=== PATIENT | male | born 1950 | race Caucasian/White ===

== ENCOUNTER 2017-12-27 12:21 | Emergency (ER) | payer MEDICARE ==
[2017-12-27 12:34] VITALS: RESP 18
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
--- NOTE | 2017-12-27 13:56 | US ---
EXAMINATION TYPE: US scrotum with doppler. Grayscale and color Doppler Duplex imaging performed of leeory vizcarra scrotum. DATE OF EXAM: 12/27/2017 COMPARISON: NONE CLINICAL HISTORY: Swelling left testicle. EXAM MEASUREMENTS: TESTICLES: Right Testicle: 4.0 x 3.2 x 3.1 cm Left Testicle: 4.4 x 3.0 x 3.1 cm EPIDIDYMIS HEAD: Right Epididymis: 1.2 cm, Cystic area visualize measuring 0.2 cm Left Epididymis: 1.2 cm Doppler performed to assess for testicular vascularity; good bilateral color flow and waveforms are s een. There is no evidence of testicular torsion. Presence of hydroceles: Yes, bilaterally Presence of varicoceles: No Bilateral hydroceles visualized. Septations visualized within the left. IMPRESSION: 1. Hydroceles, this is complex on the left with internal septations..
[2017-12-27 14:35] LABS: Appearance,Urine Cloudy (Clear); Bacteria,Urine Rare /hpf; Bilirubin,Urine Negative (Negative); Blood,Urine Large (Negative); Color,Urine Dark Brown; Glucose,Urine (UA) Negative (Negative); Ketones,Urine Negative (Negative); Leukocyte Esterase,Urine Moderate (Negative); Mucus,Urine Rare /hpf; PH, Urine 6.5 (5.0-8.0); Protein,Urine 1+ (Negative); RBC,Urine >182 /hpf (0-5); Specific Gravity,Urine 1.018 (1.001-1.035); Squamous Epithelial Cell,Urine 1 /hpf (0-4); WBC,Urine 84 /hpf (0-5)
[2017-12-27 15:30] VITALS: BP 150/96; PULSE 74; TEMP 97
== END 2017-12-27 15:25 | disposition home or self-care (01) ==
LOC: EC 12:21
DX: N39.0 Urinary tract infection, site not specified (principal); N43.3 Hydrocele, unspecified; Z87.891 Personal history of nicotine dependence; Z79.82 Long term (current) use of aspirin; Z79.899 Other long term (current) drug therapy; Z88.1 Allergy status to other antibiotic agents
CPT/HCPCS: 76870; 81001; 87077; 87086; 87186; 93975; 99284

== ENCOUNTER → 2018-01-16 | Outpatient (CLI) | payer MEDICARE ==
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
== END ==
LOC: RADXRMAIN 14:44
DX: S49.91XA Unspecified injury of right shoulder and upper arm, initial encounter (principal)

== ENCOUNTER 2018-02-02 11:34 | Inpatient (IN) | payer MEDICARE ==
[2018-02-02] MEDS ORDERED: SODIUM CHLORIDE 0.9% 1,000 ML IV ONE (11:55)
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
[2018-02-02 12:28] LABS: Anisocytosis Slight; Basophils % (A) 0 %; Eosinophils # (A) 0.1 k/uL (0-0.7); Eosinophils % (A) 3 %; HCT 42.8 % (39.0-53.0); HGB 13.7 gm/dL (13.0-17.5); Hypochromasia Slight; Lymphocytes # (A) 0.5 k/uL (1.0-4.8); Lymphocytes % (A) 31 %; MCH 26.4 pg (25.0-35.0); MCHC 31.9 g/dL (31.0-37.0); MCV 82.6 fL (80.0-100.0); Mean Platelet Volume 9.8; Monocytes # (A) 0.1 k/uL (0-1.0); Monocytes % (A) 6 %; Neutrophils % (A) 58 %; RBC 5.18 m/uL (4.30-5.90); RDW 16.5 % (11.5-15.5)
[2018-02-02 12:32] LABS: Appearance,Urine Clear (Clear); Bilirubin,Urine Negative (Negative); Blood,Urine Trace (Negative); Color,Urine Light Yellow; Glucose,Urine (UA) Negative (Negative); Hyaline Casts,Urine 4 /lpf (0-2); Ketones,Urine Negative (Negative); Leukocyte Esterase,Urine Negative (Negative); Mucus,Urine Rare /hpf; Nitrite,Urine Negative (Negative); Protein,Urine Negative (Negative); RBC,Urine 2 /hpf (0-5); Specific Gravity,Urine 1.008 (1.001-1.035); Squamous Epithelial Cell,Urine <1 /hpf (0-4); Urobilinogen,Urine <2.0 mg/dL (<2.0); WBC,Urine <1 /hpf (0-5)
--- NOTE | 2018-02-02 12:37 | CT ---
EXAMINATION TYPE: CT brain wo con DATE OF EXAM: 02/02/2018 COMPARISON: NONE HISTORY: UTI, Altered mental status CT DLP: 1023.20 mGycm Automated exposure control for dose reduction was used. FINDINGS: Central structures are midline. There is no evidence of hydrocephalus. No acute focal lesion, mass ef fect or midline shift is seen. I do not see evidence of intracranial blood. The orbits appear normal. Visualized portions of the paranasal sinuses and mastoids are clear. The bony calvarium is intact. IMPRESSION: NO ACUTE INTRACRANIAL ABNORMALITY.
[2018-02-02 12:39] LABS: ALT 68 U/L (21-72); AST 46 U/L (17-59); Albumin 3.8 g/dL (3.5-5.0); Alkaline Phosphatase 70 U/L (38-126); Anion Gap 12 mmol/L; Blood Urea Nitrogen 13 mg/dL (9-20); Calcium 9.3 mg/dL (8.4-10.2); Carbon Dioxide 34 mmol/L (22-30); Chloride 101 mmol/L (98-107); Glucose 95 mg/dL (74-99); Potassium 3.6 mmol/L (3.5-5.1); Sodium 147 mmol/L (137-145); Total Bilirubin 1.3 mg/dL (0.2-1.3); Total Protein 6.9 g/dL (6.3-8.2)
[2018-02-02 12:45] LABS: WBC 1.7 k/uL (3.8-10.6)
[2018-02-02 12:47] LABS: Creatine Kinase 20 U/L (55-170)
[2018-02-02 12:57] LABS: INR 1.2 (<1.2); Partial Thromboplastin Time 30.5 sec (22.0-30.0); Prothrombin Time 11.6 sec (9.0-12.0)
--- NOTE | 2018-02-02 12:59 | XR ---
EXAMINATION TYPE: XR chest 2V DATE OF EXAM: 02/02/2018 HISTORY: altered mental status. REFERENCE: Previous study dated 10/03/2017. FINDINGS: The heart is enlarged. There is unfolding of the thoracic aorta. The study is rotated. This gives increased opacity in the left hemithorax. No definite infiltrate is seen. The left CP angle is excluded from this study. Incidental note is made of a previous posterior fusion of the lower cervical spine. IMPRESSION: CARDIOMEGALY.
[2018-02-02 13:00] LABS: Creatine Kinase MB 2.3 ng/mL (0.0-2.4); Troponin I <0.012 ng/mL (0.000-0.034)
[2018-02-02 13:00] LABS: Amphetamine Screen,Urine Not Detected (NotDetected); Barbiturate Screen,Urine Not Detected (NotDetected); Benzodiazepines Screen,Urine Not Detected (NotDetected); Cocaine Screen,Urine Not Detected (NotDetected); Methadone Screen, Urine Not Detected (NotDetected); Opiate Screen,Urine Not Detected (NotDetected); Oxycodone Screen, Urine Not Detected (NotDetected); Phencyclidine Screen,Urine Not Detected (NotDetected); Tricyclic Antidepressant,Urine Detected (NotDetected); Urn Cannabinoid Scrn Not Detected (NotDetected)
[2018-02-02 13:05] LABS: Large Platelets Present; Platelet Count 36 k/uL (150-450)
[2018-02-02] MEDS ORDERED: ACETAMINOPHEN TAB 325 MG TAB PO PRN (13:36)
[2018-02-02] MEDS ORDERED: NALOXONE 0.4 MG/ML 1 ML VIAL IV PRN (13:36)
[2018-02-02] MEDS ORDERED: PIPERACILLIN-TAZOBACTAM 3.375 GM in DEXTROSE/WATER 1 50ML.BAG IVPB STA (13:39)
[2018-02-02] MEDS ORDERED: VANCOMYCIN IV PER PHARMACY 1 EACH MISC MISCELLANE PRN (13:39)
[2018-02-02] MEDS: SODIUM CHLORIDE 0.9% 1,000 ML IV SCH (14:45)
[2018-02-02] MEDS ORDERED: VANCOMYCIN 1,750 MG in SODIUM CHLORIDE 0.9% 250 ML IVPB ONE (18:00)
[2018-02-02] MEDS: AMITRIPTYLINE HCL 25 MG TAB PO SCH (21:57)
[2018-02-02] MEDS: BACLOFEN 10 MG TAB PO SCH (21:57)
[2018-02-02] MEDS: PIPERACILLIN-TAZOBACTAM 3.375 GM in DEXTROSE/WATER 1 50ML.BAG IVPB SCH (23:55)
[2018-02-03 06:04] LABS: Glucose,Whole Blood 87 mg/dL (75-99)
[2018-02-03] MEDS: VANCOMYCIN 1,750 MG in SODIUM CHLORIDE 0.9% 250 ML IVPB SCH ×2 (06:45→21:31)
[2018-02-03] MEDS: SODIUM CHLORIDE 0.9% 1,000 ML IV SCH (06:45)
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
--- NOTE | 2018-02-03 09:32 | US ---
EXAMINATION TYPE: US kidneys/renal and bladder DATE OF EXAM: 02/03/2018 COMPARISON: CT and US CLINICAL HISTORY: uti, sepsis stones. UTI, Sepsis EXAM MEASUREMENTS: Right Kidney: 11.5 x 5.5 x 6.7 cm Left Kidney: 12.9 x 4.8 x 5.5 cm Difficult exam, portable scan, pt a quadriplegic Right Kidney: Echogenic mass superior to right kidney, known adrenal mass= 7.4 x 6.1 x 8.2 cm, in add ition a hypoechoic lesion near upper pole= 2.7 x 1.8 x 2.5 cm, unable to determine if connected to ki dney Left Kidney: Cortical thinning, otherwise appeared Bladder: Pt has cath in place Incidental enlarged spleen and gallstones IMPRESSION: 1. No now mass right adrenal gland. Additional hypoechoic mass adjacent right kidney. CT correlation recommended.
[2018-02-03 09:33] LABS: Anisocytosis Slight; Basophils % (A) 0 %; Eosinophils # (A) 0.1 k/uL (0-0.7); Eosinophils % (A) 1 %; HCT 40.8 % (39.0-53.0); HGB 12.7 gm/dL (13.0-17.5); Hypochromasia Moderate; Lymphocytes # (A) 0.8 k/uL (1.0-4.8); Lymphocytes % (A) 21 %; MCH 26.2 pg (25.0-35.0); MCHC 31.1 g/dL (31.0-37.0); MCV 84.3 fL (80.0-100.0); Mean Platelet Volume 9.6; Monocytes # (A) 0.2 k/uL (0-1.0); Monocytes % (A) 6 %; Neutrophils # (A) 2.6 k/uL (1.3-7.7); Neutrophils % (A) 70 %; RBC 4.84 m/uL (4.30-5.90); RDW 16.5 % (11.5-15.5); WBC 3.7 k/uL (3.8-10.6)
[2018-02-03 09:41] LABS: Platelet Count 52 k/uL (150-450)
[2018-02-03 09:49] LABS: ALT 57 U/L (21-72); AST 48 U/L (17-59); Albumin 3.1 g/dL (3.5-5.0); Alkaline Phosphatase 60 U/L (38-126); Anion Gap 12 mmol/L; Blood Urea Nitrogen 16 mg/dL (9-20); Calcium 8.9 mg/dL (8.4-10.2); Carbon Dioxide 26 mmol/L (22-30); Chloride 108 mmol/L (98-107); Glucose 79 mg/dL (74-99); LDH 382 U/L (313-618); Potassium 3.6 mmol/L (3.5-5.1); Sodium 146 mmol/L (137-145); Total Bilirubin 1.6 mg/dL (0.2-1.3)
[2018-02-03] MEDS: LISINOPRIL 5 MG TAB PO SCH ×2 (09:51→10:35)
[2018-02-03] MEDS: ASPIRIN 81 MG PO SCH ×2 (09:51→10:33)
[2018-02-03] MEDS: BACLOFEN 10 MG TAB PO SCH ×2 (09:51→10:27)
[2018-02-03] MEDS: amLODIPine 5 MG TAB PO SCH ×2 (09:51→10:33)
[2018-02-03] MEDS: FUROSEMIDE 20 MG TAB PO SCH ×2 (09:51→10:35)
[2018-02-03] MEDS: POTASSIUM CHLORIDE ER 10 MEQ TAB.ER.PRT PO SCH ×2 (09:52→10:35)
[2018-02-03] MEDS: OXYBUTYNIN 10 MG TAB.ER.24 PO SCH ×2 (09:52→10:35)
[2018-02-03] MEDS: MULTIVITAMINS, THERA 1 EACH TAB PO SCH ×2 (09:52→10:36)
[2018-02-03] MEDS: OXYBUTYNIN 15 MG TAB.ER.24 PO SCH ×2 (09:52→10:35)
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
[2018-02-03] MEDS: CEFEPIME 2 GM in SODIUM CHLORIDE 0.9% 50 ML IVPB SCH ×2 (10:35→17:03)
--- NOTE | 2018-02-03 10:57 | XR ---
EXAMINATION TYPE: XR chest 1V DATE OF EXAM: 02/03/2018 HISTORY: Shortness of breath. COMPARISON: 02/02/2018 TECHNIQUE: Single view of the chest is submitted. FINDINGS: Demonstrated are scattered senescent parenchymal change. There is increased left perihilar density may reflect developing infiltrate. The heart is stable. Unfolding of the thoracic aorta with ectasia seen. Hilar and mediastinal structures are within normal limits. Degenerative changes are seen of the dorsal spine. IMPRESSION: 1. There is increased left perihilar density may reflect developing infiltrate.
[2018-02-03] MEDS ORDERED: SODIUM CHLORIDE 0.9% 1,000 ML IV ONE ×2 (11:42→11:43)
[2018-02-03] MEDS ORDERED: RX INFO: IV CONTRAST WAS GIVEN 1 EACH MISC MISCELLANE PRN (11:53)
--- NOTE | 2018-02-03 12:21 | XR ---
EXAMINATION TYPE: XR abdomen 1V DATE OF EXAM: 02/03/2018 11:59 AM CLINICAL HISTORY: Pain, ileitis TECHNIQUE: Single supine KUB image of the abdomen is obtained. COMPARISON: 06/21/2016 FINDINGS: Scattered gas is seen in non-distended small bowel loops. Gas and fecal material is seen in non-distended colon. There is no visceromegaly, pneumoperitoneum, or abnormal calcification apprecia jesus. The lung bases are clear and the osseous structures are intact. Stents and IVC filter noted to b e in place. Severe degenerative change right hip. Degenerative change lumbar spine. IMPRESSION: Overall nonobstructive bowel gas pattern.
[2018-02-03] MEDS: DEXTROSE 5%-0.45% NACL 1,000 ML IV SCH ×2 (12:40→21:31)
--- NOTE | 2018-02-03 13:47 | CT ---
EXAMINATION TYPE: CT abdomen pelvis w con DATE OF EXAM: 02/03/2018 COMPARISON: Prior CT abdomen 10/01/2016 HISTORY: Evaluate right renal mass, history of fatty lesion right adrenal mass CT DLP: 2493.10 mGycm Automated exposure control for dose reduction was used. TECHNIQUE: Helical acquisition of images from the lung bases through the pelvis have been completed. CONTRAST: Performed without Oral Contrast and with IV Contrast, patient injected with 100 mL of Isovue 300. FINDINGS: The heart is enlarged LUNG BASES: There are dependent atelectatic changes, correlate to exclude pneumonia, there may be sma ll effusion. AORTA: No significant abnormality is appreciated. Common iliac vein stents are present bilaterally, inferior vena cava filter is present, struts may be extending outside of the inferior vena cava LIVER/GB: Multiple calcified gallstones are present, liver shows no definite abnormality.. PANCREAS: No significant abnormality is seen. SPLEEN: Enlarged measuring 15.6 cm in AP dimension by 19 cm in cephalad to caudal dimension. ADRENALS: Suprarenal mixed density, fat-containing mass on the right is again noted measures approxim ately 9 x 6.9 by 5 cm. KIDNEYS: No significant abnormality is seen. REPRODUCTIVE ORGANS: No significant abnormality is seen BOWEL: There is an ostomy is present in the right lower quadrant containing bowel loops, diverticula r changes are noted, peristomal hernia contains fat.. FREE AIR: No Free Air visible. ASCITES: None visible. PELVIC ADENOPATHY: None visualized. RETROPERITONEAL ADENOPATHY: No Retroperitoneal Adenopathy visible. URINARY BLADDER: Indwelling Kunz catheter present, air is present within a decompressed bladder and the bladder wall may be thickened, correlate to exclude chronic infection. OSSEOUS STRUCTURES: Marked arthropathy changes are present in the right hip greater than left, degen erative disc changes are present in the visualized spine. Large amount of fatty replacement present i n the visualized musculature. Suspect some compression deformities in the lower thoracic spine, degen erative changes IMPRESSION: POSTOP CHANGES. CHOLELITHIASIS. 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 SPL ENOMEGALY. FINDINGS IN THE URINARY BLADDER IS DESCRIBED, CORRELATE FOR POSSIBLE URINARY TRACT INFECTI ON
[2018-02-03] MEDS ORDERED: ACETAMINOPHEN TAB 325 MG TAB PO PRN (14:20)
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
[2018-02-03] MEDS: NYSTATIN 100,000 UNIT/ML SUSP 500,000 UNIT/5 ML CUP PO SCH ×3 (16:01→21:28)
--- NOTE | 2018-02-03 18:51 | EEG ---
ELECTROENCEPHALOGRAM REPORT DATE OF SERVICE: 02/03/2018 REASON FOR TESTING: Altered mental status. DESCRIPTION OF THE PROCEDURE: This EEG was performed using a 21-channel digital electroencephalograph, following international 10-20 system. DESCRIPTION OF THE RECORDING: From the beginning of the tracing, and with the patient's eyes closed, the background rhythm was mostly consisting of 12-14 Hz beta frequency. No obvious asymmetry is seen. Photic stimulation was performed with a minimal driving response seen. No pathological waves were elicited. Hyperventilation was not performed. Occasional muscle artifacts are seen. The patient remains awake throughout the tracing. No epileptiform discharges were seen. His EKG lead showed an irregularly irregular rhythm with a normal rate. INTERPRETATION: This awake EEG showed mostly beta frequency in the background rhythm, which could be medication side effects. No epileptiform discharges were seen. His EKG lead showed an irregularly irregular rhythm with a normal rate. Clinical correlation is recommended. RUIZ / NACHO: [id number] /
[2018-02-03] MEDS: AMITRIPTYLINE HCL 25 MG TAB PO SCH (21:27)
[2018-02-03] MEDS: FAMOTIDINE 20 MG/2 ML VIAL IV SCH (21:28)
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
[2018-02-04] MEDS: CEFEPIME 2 GM in SODIUM CHLORIDE 0.9% 50 ML IVPB SCH ×4 (00:41→23:13)
[2018-02-04] MEDS: DEXTROSE 5%-0.45% NACL 1,000 ML IV SCH ×3 (06:35→23:13)
[2018-02-04 06:46] LABS: ALT 58 U/L (21-72); AST 52 U/L (17-59); Albumin 3.3 g/dL (3.5-5.0); Alkaline Phosphatase 67 U/L (38-126); Anion Gap 12 mmol/L; Blood Urea Nitrogen 18 mg/dL (9-20); Calcium 8.9 mg/dL (8.4-10.2); Carbon Dioxide 27 mmol/L (22-30); Chloride 108 mmol/L (98-107); Glucose 148 mg/dL (74-99); Potassium 3.7 mmol/L (3.5-5.1); Sodium 147 mmol/L (137-145); Total Bilirubin 1.5 mg/dL (0.2-1.3); Total Protein 6.4 g/dL (6.3-8.2)
[2018-02-04 06:49] LABS: Anisocytosis Slight; Basophils % (A) 0 %; Eosinophils # (A) 0.1 k/uL (0-0.7); Eosinophils % (A) 2 %; HCT 44.2 % (39.0-53.0); HGB 13.8 gm/dL (13.0-17.5); Hypochromasia Slight; Lymphocytes # (A) 0.6 k/uL (1.0-4.8); Lymphocytes % (A) 11 %; MCH 26.1 pg (25.0-35.0); MCHC 31.2 g/dL (31.0-37.0); MCV 83.7 fL (80.0-100.0); Mean Platelet Volume 9.4; Monocytes # (A) 0.4 k/uL (0-1.0); Monocytes % (A) 9 %; Neutrophils # (A) 3.7 k/uL (1.3-7.7); Neutrophils % (A) 76 %; RBC 5.28 m/uL (4.30-5.90); RDW 16.4 % (11.5-15.5); WBC 4.9 k/uL (3.8-10.6)
[2018-02-04 06:50] LABS: Platelet Count 51 k/uL (150-450)
[2018-02-04] MEDS: SODIUM CHLORIDE 0.9% 1,000 ML IV SCH (08:11)
[2018-02-04] MEDS: FAMOTIDINE 20 MG/2 ML VIAL IV SCH ×2 (08:50→19:51)
[2018-02-04] MEDS: NYSTATIN 100,000 UNIT/ML SUSP 500,000 UNIT/5 ML CUP PO SCH ×4 (08:50→19:51)
[2018-02-04] MEDS: ENOXAPARIN 40 MG/0.4 ML SYRINGE SQ SCH (08:50)
[2018-02-04] MEDS: POTASSIUM CHLORIDE ER 10 MEQ TAB.ER.PRT PO SCH (08:51)
[2018-02-04] MEDS: LISINOPRIL 5 MG TAB PO SCH (08:51)
[2018-02-04] MEDS: MULTIVITAMINS, THERA 1 EACH TAB PO SCH (08:51)
[2018-02-04] MEDS: ASPIRIN 81 MG PO SCH (08:51)
[2018-02-04] MEDS: amLODIPine 5 MG TAB PO SCH (08:51)
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
[2018-02-04] MEDS ORDERED: VANCOMYCIN TROUGH DUE 1 EACH MISC MISCELLANE ONE (13:00)
[2018-02-04] MEDS ORDERED: MAGNESIUM SULFATE-D5W PMX 1 GM in DEXTROSE/WATER 1 100ML.BAG IVPB ONE (14:00)
[2018-02-04] MEDS: VANCOMYCIN 1,750 MG in SODIUM CHLORIDE 0.9% 250 ML IVPB SCH (14:02)
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
[2018-02-04] MEDS: AMITRIPTYLINE HCL 25 MG TAB PO SCH (19:51)
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
[2018-02-05] MEDS ORDERED: HALOPERIDOL LACTATE 5 MG/ML 1 ML VIAL IVP STA (01:02)
[2018-02-05] MEDS ORDERED: HALOPERIDOL LACTATE 5 MG/ML 1 ML VIAL IVP PRN (01:06)
[2018-02-05] MEDS: DEXTROSE 5%-0.45% NACL 1,000 ML IV SCH ×2 (06:10→12:44)
[2018-02-05 06:45] LABS: Anisocytosis Slight; Basophils % (A) 0 %; Eosinophils # (A) 0.1 k/uL (0-0.7); Eosinophils % (A) 4 %; HCT 37.5 % (39.0-53.0); Hypochromasia Slight; Lymphocytes # (A) 0.4 k/uL (1.0-4.8); Lymphocytes % (A) 11 %; MCH 26.5 pg (25.0-35.0); MCHC 32.1 g/dL (31.0-37.0); MCV 82.5 fL (80.0-100.0); Mean Platelet Volume 8.8; Monocytes # (A) 0.3 k/uL (0-1.0); Monocytes % (A) 8 %; Neutrophils # (A) 2.6 k/uL (1.3-7.7); Neutrophils % (A) 74 %; Poikilocytosis Slight; RBC 4.54 m/uL (4.30-5.90); WBC 3.6 k/uL (3.8-10.6)
[2018-02-05 06:53] LABS: Albumin 2.9 g/dL (3.5-5.0); Calcium 8.6 mg/dL (8.4-10.2); Potassium 3.6 mmol/L (3.5-5.1); Total Bilirubin 1.2 mg/dL (0.2-1.3); Total Protein 5.7 g/dL (6.3-8.2)
[2018-02-05 06:57] LABS: Platelet Count 41 k/uL (150-450)
--- NOTE | 2018-02-05 07:01 | P.PN ---
Progress Note - Text Progress Note Date: 02/04/18 A recent urine culture showed Klebsiella oxytoca, sensitive to all antibiotics tested other than ampicillin. He is now admitted with sepsis. The CT scan shows no evidence of hydronephrosis or urolithiasis. His known right adrenal lesion is stable. He is receiving IV antibiotics and his condition is improved , though he remains confused. He denies pain. Blood cultures are negative. I anticipate continued improvement with the use of IV antibiotics. It is not expected that urologic intervention will be required.
--- NOTE | 2018-02-05 10:00 | CDI ---
Last Revision, September 2017 Documentation Clarification Form Date: January From: Herminia Cherry Admit Date: 02/02/2018 1:36:00 PM Patient Name: Cosme Bruno Visit Number: [id number] ATTENTION: The Clinical Documentation Specialists (CDI) and [facility] Coding Staff appreciate your assistance in clarifying documentation. Please respond to the clarification below the line at the bottom and electronically sign. The CDI & [facility] Coding staff will review the response and follow-up if needed. Please note: Queries are made part of the Legal Health Record. If you have any questions, please contact the author of this message via ITS. Dr. Kristian Cooney, Sepsis from [place] I was documented in the Progress note on 02/04 and in PN on 02/04 from [place]. History/Risk Factors: dvt, neurologic disorder, pneumonia, renal disease, paraplegic, self catch, cholelithiaisis, nephrolithiasis, utis, mian filter, UTI Clinical Indicators: Vital Signs on admission:T 90.1, P 49, R 16, 158/105, 95% 2l=L WBC on admission: 1.7 Urine Culture: PN on 02/04 states suggested a pansensitive Klesiella oxytoca. Treatment Antibiotics IV Vancomycin, IV piperacillin Please document the condition that these clinical indicators signify, whether Present on Admission, and cause if known: UTI If due to catheter, device or implant, please document Identify location of infection (if known) Bladder, Kidney, Urethra Other, please specify Unable to determine Present on Admission: Yes No Please continue to document in your progress notes, under the line below and/ or in the discharge summary in order to capture severity of illness and risk of mortality. Include clinical findings that support your diagnosis. Catheter device, present on admission ____I put in the notes that it was related to straight cath associasted Klebsiella UTI. Please see progress notes MTDD
[2018-02-05] MEDS: amLODIPine 5 MG TAB PO SCH (10:45)
[2018-02-05] MEDS: ASPIRIN 81 MG PO SCH (10:45)
[2018-02-05] MEDS: NYSTATIN 100,000 UNIT/ML SUSP 500,000 UNIT/5 ML CUP PO SCH ×4 (10:45→21:07)
[2018-02-05] MEDS: ENOXAPARIN 40 MG/0.4 ML SYRINGE SQ SCH (10:45)
[2018-02-05] MEDS: LISINOPRIL 5 MG TAB PO SCH (10:46)
[2018-02-05] MEDS: FAMOTIDINE 20 MG/2 ML VIAL IV SCH ×2 (10:46→21:07)
[2018-02-05] MEDS: POTASSIUM CHLORIDE ER 10 MEQ TAB.ER.PRT PO SCH (10:46)
[2018-02-05] MEDS ORDERED: VANCOMYCIN 1,750 MG in SODIUM CHLORIDE 0.9% 250 ML IVPB SCH (12:00)
[2018-02-05] MEDS: CEFEPIME 2 GM in SODIUM CHLORIDE 0.9% 50 ML IVPB SCH (12:39)
[2018-02-05] MEDS: MULTIVITAMINS, THERA 1 EACH TAB PO SCH (12:39)
--- NOTE | 2018-02-05 13:34 | XR ---
EXAMINATION TYPE: XR chest 1V DATE OF EXAM: 02/05/2018 COMPARISON: Prior chest x-ray 02/03/2018 HISTORY: Cough TECHNIQUE: Single frontal view of the chest is obtained. FINDINGS: Findings are similar. Bilateral airspace disease present within the lungs. No evident pneu mothorax or pleural effusion. Postop change noted to the cervical spine. Heart size is enlarged. The aorta is tortuous. There are overlying cardiac leads. Patient is rotated. IMPRESSION: Bilateral pneumonia may be present, correlate, follow-up recommended.
[2018-02-05] MEDS: HALOPERIDOL LACTATE 5 MG/ML 1 ML VIAL IVP PRN ×2 (14:08→23:10)
[2018-02-05] MEDS ORDERED: IPRATROPIUM-ALBUTEROL 3 ML NEB INHALATION PRN (14:13)
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
[2018-02-05] MEDS: IPRATROPIUM-ALBUTEROL 3 ML NEB INHALATION SCH ×2 (16:30→20:32)
[2018-02-05] MEDS: MEROPENEM 1 GM in SODIUM CHLORIDE 0.9% 100 ML IVPB SCH ×2 (16:49→23:58)
[2018-02-05] MEDS: SODIUM CHLORIDE 0.9% 1,000 ML IV SCH (17:58)
[2018-02-05] MEDS: PIPERACILLIN-TAZOBACTAM 3.375 GM in DEXTROSE/WATER 1 50ML.BAG IVPB SCH (17:58)
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
[2018-02-05] MEDS ORDERED: QUEtiapine 25 MG TAB PO SCH (21:00)
[2018-02-05] MEDS: AMITRIPTYLINE HCL 25 MG TAB PO SCH (21:07)
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
[2018-02-06 06:08] LABS: Albumin 3.1 g/dL (3.5-5.0); Calcium 8.8 mg/dL (8.4-10.2); Potassium 4.1 mmol/L (3.5-5.1); Total Bilirubin 1.2 mg/dL (0.2-1.3)
[2018-02-06 06:12] LABS: Anisocytosis Slight; Basophils % (A) 0 %; Eosinophils # (A) 0.1 k/uL (0-0.7); Eosinophils % (A) 1 %; HCT 37.4 % (39.0-53.0); HGB 11.9 gm/dL (13.0-17.5); Hypochromasia Slight; Lymphocytes # (A) 0.4 k/uL (1.0-4.8); Lymphocytes % (A) 8 %; MCH 26.4 pg (25.0-35.0); MCHC 31.9 g/dL (31.0-37.0); MCV 82.9 fL (80.0-100.0); Mean Platelet Volume 9.9; Monocytes # (A) 0.4 k/uL (0-1.0); Monocytes % (A) 7 %; Neutrophils # (A) 4.1 k/uL (1.3-7.7); Neutrophils % (A) 82 %; RBC 4.51 m/uL (4.30-5.90); RDW 16.3 % (11.5-15.5)
[2018-02-06 06:15] LABS: Platelet Count 52 k/uL (150-450)
[2018-02-06] MEDS: IPRATROPIUM-ALBUTEROL 3 ML NEB INHALATION SCH ×4 (08:28→20:42)
[2018-02-06] MEDS: FAMOTIDINE 20 MG/2 ML VIAL IV SCH ×2 (09:04→21:03)
[2018-02-06] MEDS: ENOXAPARIN 40 MG/0.4 ML SYRINGE SQ SCH (09:04)
[2018-02-06] MEDS: MEROPENEM 1 GM in SODIUM CHLORIDE 0.9% 100 ML IVPB SCH ×3 (09:24→23:35)
[2018-02-06] MEDS ORDERED: FUROSEMIDE 10 MG/ML 4 ML VIAL IV STA (09:39)
--- NOTE | 2018-02-06 10:31 | XR ---
EXAMINATION TYPE: XR chest 1V DATE OF EXAM: 02/06/2018 CLINICAL HISTORY: Difficulty breathing an pneumonia progress study. TECHNIQUE: Single AP portable frontal view of the chest is obtained. COMPARISON: Chest x-ray from one day earlier and older studies. FINDINGS: There is partial visualization of surgical change in the cervical spine. There is persiste nt cardiomegaly with aneurysmal thoracic aorta. There is persistent bibasilar opacity. Upper lungs re main clear without pneumothorax. IMPRESSION: Overall stable findings, cardiomegaly with small bilateral pleural effusions and associ ated bibasilar atelectasis and/or infiltrate all redemonstrated. No new infiltrate is seen.
[2018-02-06 10:58] LABS: ABG Base Excess 2.4 mmol/L; ABG HCO3 27 mmol/L (21-25); ABG Oxygen Saturation 96.8 % (94-97); ABG PCO2 40 mmHg (35-45); ABG PH 7.44 (7.35-7.45); ABG PO2 75 mmHg (83-108); ABG TCO2 28 mmol/L (19-24)
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
--- NOTE | 2018-02-06 11:41 | CT ---
EXAMINATION TYPE: CT brain wo con DATE OF EXAM: 02/06/2018 COMPARISON: 02/02/2018 HISTORY: 67-year-old male confusion, Mental status changes TECHNIQUE: Examination was done in axial plane without intravenous contrast. Coronal and sagittal r econstructions performed. CT DLP: 1121 mGycm Automated exposure control for dose reduction was used. FINDINGS: This is a very motion limited exam with extensive artifacts. It would be impossible to exclude small areas of subdural or subarachnoid blood such as along the left leaf of the tentorium are along portio ns of the convexities. Mild scattered mucosal thickening ethmoid air cells and right sphenoid sinus. Mastoid air cells well pneumatized. Orbits and globes are intact. No hydrocephalus, midline shift, or effacement of basal subarachnoid cisterns. IMPRESSION: 1. Very motion degraded exam. No midline shift or hydrocephalus. 2. The exam is nondiagnostic for the exclusion of small areas of subarachnoid or subdural blood.
[2018-02-06] MEDS: NYSTATIN 100,000 UNIT/ML SUSP 500,000 UNIT/5 ML CUP PO SCH ×4 (12:06→21:23)
[2018-02-06] MEDS: risperiDONE 0.5 MG TAB PO SCH ×2 (12:06→21:23)
[2018-02-06] MEDS: MULTIVITAMINS, THERA 1 EACH TAB PO SCH (12:07)
[2018-02-06] MEDS: amLODIPine 5 MG TAB PO SCH (16:46)
[2018-02-06] MEDS: ASPIRIN 81 MG PO SCH (16:47)
[2018-02-06] MEDS: POTASSIUM CHLORIDE ER 10 MEQ TAB.ER.PRT PO SCH (16:47)
[2018-02-06] MEDS: LISINOPRIL 5 MG TAB PO SCH (16:47)
--- NOTE | 2018-02-06 18:54 | EEG ---
ELECTROENCEPHALOGRAM REPORT DATE OF SERVICE: 02/06/2018 REASON FOR TESTING: Altered mental status. DESCRIPTION OF THE PROCEDURE: This EEG was performed using a 21-channel digital electroencephalograph, following international 10-20 system. DESCRIPTION OF THE RECORDING: From the beginning of the tracing, and with the patient's eyes closed, the background rhythm was mostly consisting of 6-7 Hz theta frequency in the posterior occipital leads. No obvious asymmetry is seen. Photic stimulation was performed with a minimal driving response seen. No pathological waves were elicited. Hyperventilation was not performed. The patient remains awake throughout the tracing. No epileptiform discharges were seen. Occasional muscle and movement artifacts are seen. His EKG lead showed an irregularly irregular rhythm with a normal rate. INTERPRETATION: This awake EEG is abnormal due to the presence of generalized slowing of the background rhythm, mostly in the theta range. This is consistent with mild encephalopathy. No epileptiform discharges were seen. The absence of epileptiform discharges does not rule out the diagnosis of epilepsy; therefore clinical correlation is recommended. Of note, his EKG lead showed an irregularly irregular rhythm with a normal rate. MMODL / IJN: [id number] /
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
[2018-02-07 06:23] LABS: Basophils % (A) 0 %; Eosinophils # (A) 0.1 k/uL (0-0.7); Eosinophils % (A) 3 %; HCT 36.3 % (39.0-53.0); HGB 11.7 gm/dL (13.0-17.5); Hypochromasia Slight; Lymphocytes # (A) 0.5 k/uL (1.0-4.8); Lymphocytes % (A) 16 %; MCH 26.6 pg (25.0-35.0); MCHC 32.2 g/dL (31.0-37.0); MCV 82.5 fL (80.0-100.0); Mean Platelet Volume 8.8; Monocytes # (A) 0.2 k/uL (0-1.0); Monocytes % (A) 7 %; Neutrophils # (A) 2.2 k/uL (1.3-7.7); Neutrophils % (A) 70 %; RDW 15.8 % (11.5-15.5); WBC 3.2 k/uL (3.8-10.6)
[2018-02-07 06:25] LABS: Platelet Count 68 k/uL (150-450)
[2018-02-07 06:39] LABS: Calcium 8.6 mg/dL (8.4-10.2); Potassium 3.8 mmol/L (3.5-5.1)
[2018-02-07] MEDS: IPRATROPIUM-ALBUTEROL 3 ML NEB INHALATION SCH ×4 (08:29→20:38)
[2018-02-07] MEDS: FAMOTIDINE 20 MG/2 ML VIAL IV SCH ×2 (08:41→21:42)
[2018-02-07] MEDS: ENOXAPARIN 40 MG/0.4 ML SYRINGE SQ SCH (08:41)
[2018-02-07] MEDS: MEROPENEM 1 GM in SODIUM CHLORIDE 0.9% 100 ML IVPB SCH ×2 (09:12→16:25)
[2018-02-07] MEDS: FUROSEMIDE 10 MG/ML 4 ML VIAL IV SCH ×2 (12:19→21:42)
--- NOTE | 2018-02-07 12:36 | FL ---
EXAMINATION TYPE: FL barium swallow w video DATE OF EXAM: 02/07/2018 COMPARISON: NONE HISTORY: Poor bedside test results TECHNIQUE: Fluoroscopy. FINDINGS: Fluoroscopic guidance was provided for the procedure performed in conjunction with the [facility] pathology department. Please see complete report forthcoming from the Speech Pathology departmen t. Various consistencies from thin liquid to solids were administered. Fluoroscopy time 1 minute 12 seconds Number of images: 1 There was aspiration with thin liquids. There is deep penetration with thick liquids and with honey t hick liquids there was some slow penetration. There is poor initiation and bolus transfer to the esop hagus There is pooling within the vallecula. IMPRESSION: 1. Aspiration with thin liquids. Deep penetration with thick liquids
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
[2018-02-07 14:55] LABS: Ionized Calcium 4.9 mg/dL (4.5-5.3)
[2018-02-07] MEDS: ASPIRIN 81 MG PO SCH (14:55)
[2018-02-07] MEDS: amLODIPine 5 MG TAB PO SCH (14:55)
[2018-02-07] MEDS: NYSTATIN 100,000 UNIT/ML SUSP 500,000 UNIT/5 ML CUP PO SCH ×3 (14:56→19:53)
[2018-02-07] MEDS: LISINOPRIL 5 MG TAB PO SCH (14:56)
[2018-02-07] MEDS: POTASSIUM CHLORIDE ER 10 MEQ TAB.ER.PRT PO SCH (14:56)
[2018-02-07] MEDS: risperiDONE 0.5 MG TAB PO SCH (14:56)
[2018-02-07] MEDS: MULTIVITAMINS, THERA 1 EACH TAB PO SCH (14:57)
[2018-02-07 15:12] LABS: Albumin 3.1 g/dL (3.5-5.0); Phosphorus 3.7 mg/dL (2.5-4.5)
[2018-02-07] MEDS: MVI, ADULT NO.4 WITH VIT K 10 ML, TRACE (CONC-1ML/DOSE) 1 ML in AMIN 2.4%/DEX 6.8%/LIPI... IV SCH ×3 (17:18)
[2018-02-07] MEDS ORDERED: hydrALAZINE HCL 20 MG/ML 1 ML VIAL IVP PRN (20:35)
[2018-02-07] MEDS: ACETAMINOPHEN IV (For NPO) 1,000 MG in EMPTY BAG 1 BAG IVPB PRN (21:43)
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
[2018-02-07] MEDS: HALOPERIDOL LACTATE 5 MG/ML 1 ML VIAL IVP PRN (22:47)
[2018-02-07] MEDS: FLUCONAZOLE IN NACL,ISO-OSM 100 MG in SALINE 1 50ML.BAG IVPB SCH (22:47)
[2018-02-08] MEDS ORDERED: FUROSEMIDE 10 MG/ML 4 ML VIAL IV STA (03:36)
[2018-02-08] MEDS ORDERED: SCOPOLAMINE 1.5MG/72HR PATCH TRANSDERM SCH (03:45)
[2018-02-08] MEDS: HALOPERIDOL LACTATE 5 MG/ML 1 ML VIAL IVP PRN (04:18)
[2018-02-08 06:32] LABS: Glucose,Whole Blood 169 mg/dL (75-99)
[2018-02-08 06:34] LABS: Basophils % (A) 0 %; Eosinophils # (A) 0.1 k/uL (0-0.7); Eosinophils % (A) 1 %; HCT 39.4 % (39.0-53.0); HGB 12.6 gm/dL (13.0-17.5); Hypochromasia Slight; Lymphocytes # (A) 0.6 k/uL (1.0-4.8); Lymphocytes % (A) 8 %; MCH 26.6 pg (25.0-35.0); MCHC 31.9 g/dL (31.0-37.0); MCV 83.1 fL (80.0-100.0); Mean Platelet Volume 9.3; Monocytes # (A) 0.5 k/uL (0-1.0); Monocytes % (A) 6 %; Neutrophils # (A) 6.4 k/uL (1.3-7.7); Neutrophils % (A) 84 %; RBC 4.74 m/uL (4.30-5.90); RDW 15.7 % (11.5-15.5); WBC 7.7 k/uL (3.8-10.6)
[2018-02-08] MEDS: methylPREDNISolone SOD SUCCI 125 MG/2 ML VIAL IV SCH ×3 (06:42→17:16)
[2018-02-08 06:43] LABS: Platelet Count 89 k/uL (150-450)
[2018-02-08 06:54] LABS: Calcium 8.8 mg/dL (8.4-10.2); Magnesium 1.9 mg/dL (1.6-2.3); Potassium 3.2 mmol/L (3.5-5.1)
--- NOTE | 2018-02-08 06:57 | XR ---
EXAMINATION TYPE: XR chest 1V portable DATE OF EXAM: 02/08/2018 HISTORY: Pneumonia. REFERENCE: Previous study dated 02/06/2018. FINDINGS: There has been a previous posterior fusion of the lower cervical spine. There is now near complete opacification of the left hemithorax. There is right basilar airspace dise ase. There is a right-sided effusion. Heart size is obscured. IMPRESSION: 1. COMPLETE OPACIFICATION OF THE LEFT HEMITHORAX LIKELY REPRESENTS A COMBINATION OF ATELECTASIS AND P LEURAL FLUID. 2. WORSENING RIGHT BASILAR ATELECTASIS. 3. SMALL RIGHT-SIDED EFFUSION.
[2018-02-08] MEDS: MEROPENEM 1 GM in SODIUM CHLORIDE 0.9% 100 ML IVPB SCH ×4 (07:52→16:11)
[2018-02-08] MEDS: FUROSEMIDE 10 MG/ML 4 ML VIAL IV SCH ×2 (07:52→21:29)
[2018-02-08] MEDS: ENOXAPARIN 40 MG/0.4 ML SYRINGE SQ SCH (07:52)
[2018-02-08] MEDS: FAMOTIDINE 20 MG/2 ML VIAL IV SCH ×2 (07:52→22:30)
[2018-02-08] MEDS: ACETAMINOPHEN IV (For NPO) 1,000 MG in EMPTY BAG 1 BAG IVPB PRN (08:20)
[2018-02-08] MEDS: POTASSIUM CHLORIDE 10 MEQ in WATER FOR INJECTION 1 100ML.BAG IVPB SCH ×2 (08:21→09:51)
[2018-02-08] MEDS: IPRATROPIUM-ALBUTEROL 3 ML NEB INHALATION SCH ×4 (08:43→19:51)
--- NOTE | 2018-02-08 09:51 | P.PN ---
Progress Note - Text Progress Note Date: 02/08/18 Mr. Bruno remains confused. He is experiencing respiratory difficulty, requiring BiPAP, felt to be due to fluid overload and/or aspiration pneumonia. His most recent temperature was 99.7F, and the WBC count has increased to 7.7. He is being treated with IV antibiotics, and is receiving TPN for nutrition. He is urologically stable. Please contact me if I can be of any further assistance.
[2018-02-08 11:33] LABS: Glucose,Whole Blood 202 mg/dL (75-99)
[2018-02-08 14:28] LABS: Hemoglobin A1C 4.7 % (4.0-6.0)
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
--- NOTE | 2018-02-08 14:58 | ECHOF ---
Referral Reason:hypoxia MEASUREMENTS -------- HEIGHT: 180.3 cm WEIGHT: 138.3 kg BP: 155/84 RVIDd: 3.1 cm (< 3.3) IVSd: 1.4 cm (0.6 - 1.1) LVIDd: 5.0 cm (3.9 - 5.3) LVPWd: 1.3 cm (0.6 - 1.1) IVSs: 1.6 cm LVIDs: 4.0 cm LVPWs: 1.4 cm LA Diam: 3.3 cm (2.7 - 3.8) Ao Diam: 3.3 cm (2.0 - 3.7) AV Cusp: 1.9 cm (1.5 - 2.6) LA Diam: 2.5 cm (2.7 - 3.8) EPSS: 0.8 cm MV E Mekhi: 0.77 m/s MV DecT: 201 ms MV A Mekhi: 0.90 m/s MV E/A Ratio: 0.86 RAP: 5.00 mmHg RVSP: 11.87 mmHg MV EF SLOPE: 177.06 mm/s (70 - 150) MV EXCURSION: 2.11 cm (> 18.000) FINDINGS -------- Sinus rhythm with extra systolic beats. This was a technically difficult study with suboptimal views. The left ventricular size is normal. There is moderate concentric left ventricular hypertrophy. O verall left ventricular systolic function is mildly impaired with, an EF between 45 - 50 %. The right ventricle is mildly enlarged. Normal LA size by volume 22+/-6 ml/m2. The right atrium was not well visualized. 3ml of Lumason was utilized for enhancement of images. Aortic valve is trileaflet and is mildly thickened. The mitral valve leaflets are mildly thickened. Mild mitral regurgitation is present. Mild tricuspid regurgitation present. Right ventricular systolic pressure is normal at < 35 mmHg. There is no evidence of pulmonary hypertension. The pulmonic valve was not well visualized. There is no pulmonic regurgitation present. The aortic root size is normal. Normal inferior vena cava with normal inspiratory collapse consistent with estimated right atrial pre ssure of 5 mmHg. There is no pericardial effusion. CONCLUSIONS -------- 1. Sinus rhythm with extra systolic beats. 2. This was a technically difficult study with suboptimal views. 3. The left ventricular size is normal. 4. There is moderate concentric left ventricular hypertrophy. 5. Overall left ventricular systolic function is mildly impaired with, an EF between 45 - 50 %. 6. The right ventricle is mildly enlarged. 7. Normal LA size by volume 22+/-6 ml/m2. 8. The right atrium was not well visualized. 9. 3ml of Lumason was utilized for enhancement of images. 10. Aortic valve is trileaflet and is mildly thickened. 11. The mitral valve leaflets are mildly thickened. 12. Mild mitral regurgitation is present. 13. Mild tricuspid regurgitation present. 14. Right ventricular systolic pressure is normal at < 35 mmHg. 15. The pulmonic valve was not well visualized. 16. There is no pulmonic regurgitation present. 17. The aortic root size is normal. 18. There is no pericardial effusion. VEIN ACCESS TECHNICIAN: De Butt RDCS
[2018-02-08] MEDS: MVI, ADULT NO.4 WITH VIT K 10 ML, TRACE (CONC-1ML/DOSE) 1 ML in AMIN 2.4%/DEX 6.8%/LIPI... IV SCH ×3 (16:11)
[2018-02-08 16:36] LABS: Glucose,Whole Blood 209 mg/dL (75-99)
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
[2018-02-08] MEDS ORDERED: ACETAMINOPHEN IV (For NPO) 1,000 MG in EMPTY BAG 1 BAG IVPB PRN (20:15)
[2018-02-08 20:58] LABS: Glucose,Whole Blood 231 mg/dL (75-99)
[2018-02-08] MEDS: FLUCONAZOLE IN NACL,ISO-OSM 100 MG in SALINE 1 50ML.BAG IVPB SCH (21:50)
[2018-02-09] MEDS: MEROPENEM 1 GM in SODIUM CHLORIDE 0.9% 100 ML IVPB SCH ×3 (00:55→15:09)
[2018-02-09] MEDS: methylPREDNISolone SOD SUCCI 125 MG/2 ML VIAL IV SCH ×4 (00:55→17:11)
[2018-02-09 06:07] LABS: Glucose,Whole Blood 209 mg/dL (75-99)
[2018-02-09 06:37] LABS: Basophils % (A) 0 %; Eosinophils % (A) 0 %; HCT 38.4 % (39.0-53.0); Hypochromasia Slight; Lymphocytes # (A) 0.5 k/uL (1.0-4.8); Lymphocytes % (A) 8 %; MCHC 31.4 g/dL (31.0-37.0); MCV 82.8 fL (80.0-100.0); Mean Platelet Volume 9.6; Monocytes # (A) 0.2 k/uL (0-1.0); Monocytes % (A) 4 %; Neutrophils % (A) 88 %; RBC 4.64 m/uL (4.30-5.90); RDW 15.4 % (11.5-15.5); WBC 5.7 k/uL (3.8-10.6)
[2018-02-09 06:38] LABS: Platelet Count 95 k/uL (150-450)
[2018-02-09 06:49] LABS: Calcium 8.9 mg/dL (8.4-10.2); Magnesium 2.2 mg/dL (1.6-2.3); Phosphorus 3.2 mg/dL (2.5-4.5); Potassium 3.7 mmol/L (3.5-5.1)
[2018-02-09] MEDS: FAMOTIDINE 20 MG/2 ML VIAL IV SCH ×2 (08:06→20:20)
[2018-02-09] MEDS: FUROSEMIDE 10 MG/ML 4 ML VIAL IV SCH ×2 (08:06→20:20)
[2018-02-09] MEDS: ENOXAPARIN 40 MG/0.4 ML SYRINGE SQ SCH (08:06)
[2018-02-09] MEDS: IPRATROPIUM-ALBUTEROL 3 ML NEB INHALATION SCH ×4 (08:40→19:47)
[2018-02-09 11:49] LABS: Glucose,Whole Blood 206 mg/dL (75-99)
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
--- NOTE | 2018-02-09 13:16 | XR ---
EXAMINATION TYPE: XR chest 1V portable DATE OF EXAM: 02/09/2018 HISTORY: Pneumonia. REFERENCE: Previous study dated 02/08/2018. FINDINGS: Is been a previous fusion of the lower cervical spine. There is been partial reexpansion of the left lung. There continues to be bibasilar airspace disease. There are bilateral effusions. Heart size is obscured. IMPRESSION: PARTIAL REEXPANSION OF THE LEFT LUNG.
[2018-02-09] MEDS: MVI, ADULT NO.4 WITH VIT K 10 ML, TRACE (CONC-1ML/DOSE) 1 ML in AMIN 2.4%/DEX 6.8%/LIPI... IV SCH ×3 (15:09)
[2018-02-09] MEDS: HALOPERIDOL LACTATE 5 MG/ML 1 ML VIAL IVP PRN ×2 (16:31→21:58)
[2018-02-09 16:37] LABS: Glucose,Whole Blood 269 mg/dL (75-99)
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
[2018-02-09] MEDS: BUDESONIDE 1 MG/2 ML NEBU INHALATION SCH (19:47)
[2018-02-09] MEDS: FORMOTEROL FUMARATE 20 MCG/2 ML NEBU INHALATION SCH (19:47)
[2018-02-09 21:53] LABS: Glucose,Whole Blood 200 mg/dL (75-99)
[2018-02-09] MEDS: FLUCONAZOLE IN NACL,ISO-OSM 100 MG in SALINE 1 50ML.BAG IVPB SCH (21:58)
[2018-02-10] MEDS ORDERED: DIAZEPAM 5 MG/ML 2 ML INJ IVP PRN (00:13)
[2018-02-10] MEDS: methylPREDNISolone SOD SUCCI 125 MG/2 ML VIAL IV SCH ×2 (00:30→06:58)
[2018-02-10] MEDS: MEROPENEM 1 GM in SODIUM CHLORIDE 0.9% 100 ML IVPB SCH ×2 (01:08→09:13)
[2018-02-10 06:03] LABS: Glucose,Whole Blood 218 mg/dL (75-99)
[2018-02-10 06:32] LABS: Anion Gap 15 mmol/L; Blood Urea Nitrogen 52 mg/dL (9-20); Calcium 8.7 mg/dL (8.4-10.2); Carbon Dioxide 31 mmol/L (22-30); Chloride 102 mmol/L (98-107); Glucose 225 mg/dL (74-99); Magnesium 2.3 mg/dL (1.6-2.3); Potassium 3.5 mmol/L (3.5-5.1); Sodium 148 mmol/L (137-145)
[2018-02-10] MEDS: INSULIN ASPART 100 UNIT/ML 1 ML 10 ML VIAL SQ SCH ×2 (06:50→07:15)
[2018-02-10] MEDS: HALOPERIDOL LACTATE 5 MG/ML 1 ML VIAL IVP PRN (07:15)
[2018-02-10] MEDS: FORMOTEROL FUMARATE 20 MCG/2 ML NEBU INHALATION SCH (08:26)
[2018-02-10] MEDS: IPRATROPIUM-ALBUTEROL 3 ML NEB INHALATION SCH (08:26)
[2018-02-10] MEDS: BUDESONIDE 1 MG/2 ML NEBU INHALATION SCH (08:26)
[2018-02-10] MEDS ORDERED: ENOXAPARIN 40 MG/0.4 ML SYRINGE SQ SCH (09:00)
[2018-02-10] MEDS: FUROSEMIDE 10 MG/ML 4 ML VIAL IV SCH (09:14)
[2018-02-10] MEDS: FAMOTIDINE 20 MG/2 ML VIAL IV SCH (09:14)
[2018-02-10 10:54] VITALS: RESP 20
[2018-02-10] MEDS ORDERED: MORPHINE ORAL SOL CONC 20 MG/ML BOTTLE PO PRN (11:04)
[2018-02-10] MEDS ORDERED: LORazepam ORAL CONC 60 MG/30 ML BOTTLE PO PRN (11:05)
[2018-02-10 11:06] VITALS: BMI 42.4
[2018-02-10 12:01] LABS: Glucose,Whole Blood 215 mg/dL (75-99)
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
[2018-02-10] MEDS ORDERED: ATROPINE OPHTH SOLN 1% 5ML BTL SUBLINGUAL SCH (13:00)
[2018-02-10 13:08] VITALS: BP 135/92; PULSE 85; TEMP 98
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
--- NOTE | 2018-02-12 16:06 | CDI ---
Last Revision, September 2017 Documentation Clarification Form Date: 02/12/18 From: Antonina Albrecht Phone: If you have a question regarding this query, please contact Luci Pascual at [phone] between 8am and 5pm Admit Date: 02/02/2018 1:36:00 PM Patient Name: Cosme Bruno Visit Number: [id number] Discharge Date: 02/10/18 ATTENTION: The Clinical Documentation Specialists (CDI) and [facility] Coding Staff appreciate your assistance in clarifying documentation. Please respond to the clarification below the line at the bottom and electronically sign. The CDI & [facility] Coding staff will review the response and follow-up if needed. Please note: Queries are made part of the Legal Health Record. If you have any questions, please contact the author of this message via ITS. Dr. Kristian Cooney Metabolic encephalopathy due to sepsis is documented throughout the chart. History/Risk Factors: Sepsis, cath associated UTI from Klebsiella, apsiration pneumonia and paraplegia. Clinical Indicators: altered mental status Vitals signs on admission: Treatment: IV antibiotics for the UTI and sepsis. In your professional opinion, please clarify if the metabolic encephalopathy signifies one of the following conditions: Severe Sepsis Septic Shock Other, please specify Unable to determine Present on Admission: Yes No Severe sepsis , present on admission MTDD
--- NOTE | 2018-02-12 16:13 | CDI ---
Last Revision, September 2017 Documentation Clarification Form Date: 02/12/18 From: Antonina Albrecht Phone: If you have a question regarding this query, please contact Luci Pascual at [phone] between 8am and 5pm Admit Date: 02/02/2018 1:36:00 PM Patient Name: Cosme Bruno Visit Number: [id number] Discharge Date: 02/10/18 ATTENTION: The Clinical Documentation Specialists (CDI) and [facility] Coding Staff appreciate your assistance in clarifying documentation. Please respond to the clarification below the line at the bottom and electronically sign. The CDI & [facility] Coding staff will review the response and follow-up if needed. Please note: Queries are made part of the Legal Health Record. If you have any questions, please contact the author of this message via ITS. Dr. Kristian Cooney Nursing documentation reflects a skin tear on the coccyx. Patient history/risk factors: Paraplegia, recurrent UTI, pressure ulcer to left heel and admitted for sepsis with UTI. Treatment: hydrocolloid dressing & foam with border In order to accurately code this case to reflect the appropriate severity of illness, we ask that you provide greater specificity for this skin condition, if known. Skin tear Excoriation Traumatic Wound Ulcer(If yes please specify type and stage if applicable) Other, please specify Unable to determine stage 2 pressure ulcer on coccyx MTDD
--- NOTE | 2018-02-12 16:20 | CDI ---
Last Revision, September 2017 Documentation Clarification Form Date: 02/12/18 From: Antonina Albrecht Phone: If you have a question regarding this query, please contact Luci Pascual at [phone] between 8am and 5pm Admit Date: 02/02/2018 1:36:00 PM Patient Name: Cosme Bruno Visit Number: [id number] Discharge Date: 02/10/18 ATTENTION: The Clinical Documentation Specialists (CDI) and [facility] Coding Staff appreciate your assistance in clarifying documentation. Please respond to the clarification below the line at the bottom and electronically sign. The CDI & [facility] Coding staff will review the response and follow-up if needed. Please note: Queries are made part of the Legal Health Record. If you have any questions, please contact the author of this message via ITS. Dr. Kristian Cooney He has had runs of bigeminy and trigeminy and magnesium and potassium replace is documented in your progress notes. Patient history/risk factors: Patient admitted for sepsis due to cath associated UTI and aspiration pneumonia. Patient is a paraplegic Clinical Indicators: bigeminy and trigeminy Lab findings: potassium 3.6 on admission then 3.2 on 02/08 Treatment: Potassium Chloride IV In your professional opinion, can you please document a diagnosis that correlates with the above findings? Hypokalemia Other, please specify Unable to determine Hypokalemia MTDD
--- NOTE | 2018-02-12 16:23 | CDI ---
Last Revision, September 2017 Documentation Clarification Form Date: 02/12/18 From: Antonina Albrecht Phone: If you have a question regarding this query, please contact Luci Pascual at [phone] between 8am and 5pm Admit Date: 02/02/2018 1:36:00 PM Patient Name: Cosme Bruno Visit Number: [id number] Discharge Date: 02/10/18 ATTENTION: The Clinical Documentation Specialists (CDI) and [facility] Coding Staff appreciate your assistance in clarifying documentation. Please respond to the clarification below the line at the bottom and electronically sign. The CDI & [facility] Coding staff will review the response and follow-up if needed. Please note: Queries are made part of the Legal Health Record. If you have any questions, please contact the author of this message via ITS. Dr. Kristian Cooney He has had runs of bigeminy and trigeminy and magnesium and potassium replace is documented in your progress notes. Patient history/risk factors: Patient admitted for sepsis due to cath associated UTI and aspiration pneumonia. Patient is a paraplegic Clinical Indicators: bigeminy and trigeminy Lab findings: magnesium 1.7 on admission and 1.9 on 02/08 Treatment: Magnesium Sulfate/Dextrose IV In your professional opinion, can you please document a diagnosis that correlates with the above findings? Hypomagnesium Other, please specify Unable to determine Hypomagnesium MTDD
--- NOTE | 2018-02-16 17:56 | CDI ---
Last Revision, September 2017 Documentation Clarification Form Date: 02/16/18 From: Antonina Albrecht Phone: If you have a question regarding this query, please contact Luci Pascual at [phone] between 8am and 5pm Admit Date: 02/02/2018 1:36:00 PM Patient Name: Cosme Bruno Visit Number: [id number] Discharge Date: 02/10/18 ATTENTION: The Clinical Documentation Specialists (CDI) and [facility] Coding Staff appreciate your assistance in clarifying documentation. Please respond to the clarification below the line at the bottom and electronically sign. The CDI & [facility] Coding staff will review the response and follow-up if needed. Please note: Queries are made part of the Legal Health Record. If you have any questions, please contact the author of this message via ITS. Dr. Kristian Cooney Per the home economics extension worker consult, the patient is well nourished and overweight. The patien'ts BMI is 42.4. Patient history/risk factors: Patient was admitted for sepsis, and a cath associated UTI. Clinical Indicators: Elevated BMI at 42.4 In your professional opinion, can you please document a diagnosis to correlate with the above findings? Overweight Obese(specify type) Other, please specify Unable to determine Obese MTDD
== END 2018-02-10 15:39 | disposition hospice, home (50) | DRG 698 ==
LOC: EC 11:34 → 6SEL 13:36
PROVIDERS: ADMIT Internal Medicine; ATTEND Internal Medicine
PROC: 3E0336Z Introduction of Nutritional Substance into Peripheral Vein, Percutaneous Approach (ICD-10-PCS; principal; 2018-02-07)
DX: T83.518A Infection and inflammatory reaction due to other urinary catheter, initial encounter (principal); J96.01 Acute respiratory failure with hypoxia; A41.59 Other Gram-negative sepsis; J69.0 Pneumonitis due to inhalation of food and vomit; G93.41 Metabolic encephalopathy; L89.152 Pressure ulcer of sacral region, stage 2; E87.0 Hyperosmolality and hypernatremia; R13.10 Dysphagia, unspecified; R65.20 Severe sepsis without septic shock; Z66 Do not resuscitate; N39.0 Urinary tract infection, site not specified; G82.20 Paraplegia, unspecified; Z68.41 Body mass index [BMI] 40.0-44.9, adult; D69.59 Other secondary thrombocytopenia; E66.9 Obesity, unspecified; E87.6 Hypokalemia; E83.42 Hypomagnesemia; E87.70 Fluid overload, unspecified; D17.79 Benign lipomatous neoplasm of other sites; I49.3 Ventricular premature depolarization; I51.7 Cardiomegaly; L89.620 Pressure ulcer of left heel, unstageable; I71.2 Thoracic aortic aneurysm, without rupture; K80.20 Calculus of gallbladder without cholecystitis without obstruction; R00.8 Other abnormalities of heart beat; R44.1 Visual hallucinations; R45.1 Restlessness and agitation; M24.451 Recurrent dislocation, right hip; D72.819 Decreased white blood cell count, unspecified; R33.9 Retention of urine, unspecified; N31.9 Neuromuscular dysfunction of bladder, unspecified; S14.107S Unspecified injury at C7 level of cervical spinal cord, sequela; R68.0 Hypothermia, not associated with low environmental temperature; I44.0 Atrioventricular block, first degree; Z51.5 Encounter for palliative care; Z93.3 Colostomy status; Z87.891 Personal history of nicotine dependence; Z87.442 Personal history of urinary calculi; Z87.440 Personal history of urinary (tract) infections; Z86.718 Personal history of other venous thrombosis and embolism; Z79.899 Other long term (current) drug therapy; Z79.82 Long term (current) use of aspirin; Z88.1 Allergy status to other antibiotic agents; Z87.01 Personal history of pneumonia (recurrent); Z80.9 Family history of malignant neoplasm, unspecified; Z84.89 Family history of other specified conditions
CPT/HCPCS: 36415; 36600; 70450; 71045; 71046; 74018; 74177; 74230; 76770; 80048; 80053; 80202; 80306; 81001; 82040; 82330; 82550; 82553; 82805; 83036; 83605; 83615; 83735; 83880; 84100; 84478; 84484; 85025; 85379; 85610; 85730; 87040; 93005; 93306; 94640; 94660; 94760; 95816; 96361; 96365; 99291

== ENCOUNTER 2018-02-10 15:45 | Inpatient (IN) | payer OTHER ==
[2018-02-10] MEDS ORDERED: HALOPERIDOL LACTATE 5 MG/ML 1 ML VIAL IVP PRN (15:59)
[2018-02-10] MEDS ORDERED: DIAZEPAM 5 MG/ML 2 ML INJ IVP PRN (15:59)
[2018-02-10] MEDS ORDERED: IPRATROPIUM-ALBUTEROL 3 ML NEB INHALATION PRN (16:00)
[2018-02-10] MEDS ORDERED: LORazepam 0.5 MG TAB PO PRN (16:01)
[2018-02-10] MEDS ORDERED: NA PHOS,M-B/NA PHOS,DI-BA 133 ML ENEMA RECTAL PRN (16:07)
[2018-02-10] MEDS: MORPHINE ORAL SOL CONC 20 MG/ML BOTTLE PO PRN ×2 (16:42→20:31)
[2018-02-10] MEDS: NYSTATIN 100,000 UNIT/ML SUSP 500,000 UNIT/5 ML CUP PO SCH ×2 (18:14→20:36)
[2018-02-10] MEDS ORDERED: LORazepam 2 MG/ML INJ IV PRN (20:20)
[2018-02-11] MEDS: MORPHINE ORAL SOL CONC 20 MG/ML BOTTLE PO PRN ×2 (02:56→12:09)
[2018-02-11] MEDS: ATROPINE OPHTH SOLN 1% 5ML BTL SUBLINGUAL PRN ×2 (08:01→12:08)
[2018-02-11] MEDS: NYSTATIN 100,000 UNIT/ML SUSP 500,000 UNIT/5 ML CUP PO SCH ×2 (08:01→12:09)
[2018-02-11] MEDS ORDERED: SCOPOLAMINE 1.5MG/72HR PATCH TRANSDERM SCH (09:00)
[2018-02-11 10:04] VITALS: BP 147/107; PULSE 66; RESP 8
[2018-02-11] MEDS ORDERED: ATROPINE OPHTH SOLN 1% 5ML BTL SUBLINGUAL PRN (12:03)
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
== END 2018-02-11 18:14 | disposition still patient (30) | DRG 951 ==
LOC: 6SEL 15:45
PROVIDERS: ADMIT Internal Medicine; ATTEND Internal Medicine
DX: Z51.5 Encounter for palliative care (principal); A41.9 Sepsis, unspecified organism; G93.41 Metabolic encephalopathy; J96.01 Acute respiratory failure with hypoxia; J69.0 Pneumonitis due to inhalation of food and vomit; T83.511A Infection and inflammatory reaction due to indwelling urethral catheter, initial encounter; G82.20 Paraplegia, unspecified; D61.818 Other pancytopenia; N39.0 Urinary tract infection, site not specified; B96.89 Other specified bacterial agents as the cause of diseases classified elsewhere; R33.9 Retention of urine, unspecified; K80.20 Calculus of gallbladder without cholecystitis without obstruction; I49.3 Ventricular premature depolarization; I71.2 Thoracic aortic aneurysm, without rupture; D17.5 Benign lipomatous neoplasm of intra-abdominal organs; N31.9 Neuromuscular dysfunction of bladder, unspecified; E66.9 Obesity, unspecified; T14.8XXS Other injury of unspecified body region, sequela; V89.2XXS Person injured in unspecified motor-vehicle accident, traffic, sequela; Z68.32 Body mass index [BMI] 32.0-32.9, adult; Z93.3 Colostomy status; Z99.3 Dependence on wheelchair